=== PATIENT | female | born 1950 | race Caucasian/White ===

== ENCOUNTER 2018-10-12 16:23 | Emergency (ER) | payer MEDICARE, OTHER ==
[~2018-10-12] VITALS: Ht 167.6 cm; Wt 56.7 kg
[2018-10-12] MEDS ORDERED: PREDNISONE20 MG PO (16:41)
[2018-10-12] MEDS ORDERED: NORCO 5-325 TA1 EACH PO (17:46)
== END 2018-10-12 17:53 | disposition home or self-care (01) ==
LOC: ED 16:23
DX: S20.212A Contusion of left front wall of thorax, initial encounter (principal); Z88.0 Allergy status to penicillin; Z88.1 Allergy status to other antibiotic agents; Z88.8 Allergy status to other drugs, medicaments and biological substances; W20.8XXA Other cause of strike by thrown, projected or falling object, initial encounter
CPT/HCPCS: 71101; 99284-25